=== PATIENT | female | born 1990 | race Caucasian/White ===

== ENCOUNTER 2016-07-29 16:02 | Emergency (ER) | payer MEDICARE, MEDICAID ==
[~2016-07-29 16:02] MED LIST: ALBUTEROL17 GM INH; AMBIEN10 MG; AMBIEN10 MG PO; AMOXICILLIN875 MG PO; ATARAX50 MG PO; AUGMENTIN 875-1 EAC2 PO; BACTRIM DS TABL1 TAB PO; BACTRIM DS1 TAB PO; BIRTH CONTROL PILL; CIPRO500 MG PO; CLARITIN10 MG; CONCERTA18 MG PO; CYMBALTA30 MG PO; DARVOCET-N 1001 TAB PO; DEPAKOTE; DEPAKOTE500 MG; DEPO-PROVER150 MG/ML; FEOSOL1 TAB PO; FOLIC ACID1 MG PO; GEODON20 MG; IBUPROFEN200 MG PO; IBUPROFEN600 M1 PO; KEFLEX500 MG; KEPPRA; KEPPRA100 MG/ML PO; KEPPRA1000 MG; KEPPRA1000 MG PO; KEPPRA500 M1 PO; KEPPRA500 MG PO; LAMICTAL; LAMICTAL100 M1 PO; LITHIUM CARBON300 M PO; LITHIUM CARBON450 MG; LITHIUM CARBON450 MG PO; LUNESTA; LUNESTA1 MG; MACROBID 100 M100 M1 PO; MOTRIN600 MG PO; MULTIVITAM1 TAB.CHEW PO; NEURONTIN300 MG PO; NO HOME MEDICATION XX; NO MEDS; PAXIL10 MG; PERCOCET 5-3251 EACH PO; PHENERGAN25 M1 PO; PHENERGAN25 MG PO; PRENATAL VITAMI PO; PRENATAL1 TAB PO; PRILOSEC20 MG PO; PRISTIQ50 MG PO; TRAZODONE50 MG; TRILEPTAL150 MG; TRILEPTAL300 MG; VIMPAT100 MG PO; VIMPAT150 MG PO; ZITHROMAX250 MG PO; ZOFRAN ODT4 MG PO; ZOFRAN ODT4 MG/UDTAB PO; ZOFRAN4 M2 PO; ZOFRAN4 MG PO; ZOFRAN8 MG PO; [UNRECOGNIZED DRUG - CODE] PO
[2016-07-29 17:10] LABS: PREGNANCY-URINE NEGATIVE (NEGATIVE)
== END 2016-07-29 17:48 ==
LOC: EDMED 16:02
PROVIDERS: Physician Assistant
DX: R51 Headache (principal); R11.0 Nausea; G40.909 Epilepsy, unspecified, not intractable, without status epilepticus; F31.9 Bipolar disorder, unspecified; Z79.899 Other long term (current) drug therapy
CPT/HCPCS: J1200; J1885; J2405; J7030

== ENCOUNTER 2016-09-01 14:29 | Emergency (ER) | payer MEDICARE, MEDICAID ==
[2016-09-01 15:44] LABS: URINE BILIRUBIN NEGATIVE (NEG); URINE BLOOD NEGATIVE (NEG); URINE GLUCOSE (UA) NEGATIVE (NEG); URINE KETONE NEGATIVE (NEG); URINE LEUKOCYTE ESTERASE NEGATIVE (NEG); URINE NITRITE NEGATIVE (NEG); URINE PROTEIN NEGATIVE (NEG)
[2016-09-01 15:45] LABS: URINE APPEARANCE CLEAR; URINE COLOR YELLOW
[2016-09-01 15:46] LABS: BASO % 0.5 % (0-2); EOS % 1.2 % (0-7); EOSINOPHIL ABSOLUTE COUNT 0.1 tho/cmm (0.0-0.7); HCT-HEMATOCRIT 36.6 % (34.0-49.0); IMMATURE GRANULOCYTES ABSOLUTE 0.01 tho/cmm (0-0.03); IMMATURE GRANULOCYTES PERCENT 0.1 % (0-0.3); LYMPH % 29.4 % (20-45); LYMPH ABSOLUTE COUNT 2.2 tho/cmm (0.8-4.5); MCH (MEAN CORPUSCULAR HGB) 30.9 pg (28.0-32.0); MCHC MEAN CORPUSCULAR HGB CONC 35.5 % (32.0-36.0); MCV (MEAN CELL VOLUME) 86.9 fl (82.0-96.0); MEAN PLATELET VOLUME 10.4 cmc (9.4-12.4); MONO % 5.4 % (0-12); MONOCYTE ABSOLUTE COUNT 0.4 tho/cmm (0.0-1.2); NEUTROPHIL ABSOLUTE COUNT 4.7 tho/cmm (1.6-8.0); NEUTROPHIL-AUTOMATED 4.7 tho/cmm (1.6-8.0); NEUTROPHILS % 63.4 % (40-80); PLATELET COUNT 278 tho/cmm (150-450); RED BLOOD COUNT 4.21 mil/cmm (4.00-5.20); RED CELL DISTRIBUTION WIDTH 12.2 % (12.4-16.4); WHITE BLOOD COUNT 7.4 tho/cmm (4.0-10.0)
[2016-09-01 15:54] LABS: ANION GAP 11 mmol/L (0-20); BLOOD UREA NITROGEN 12 mg/dl (6-24); CALCIUM 8.8 mg/dl (8.5-10.5); CARBON DIOXIDE-VENOUS 25 mmol/L (22-32); CHLORIDE 109 mmol/l (96-110); CREATININE 0.75 mg/dl (0.50-1.10); GLUCOSE 89 mg/dL (70-110); POTASSIUM 3.7 mmol/L (3.7-5.1); SODIUM 141 mmol/L (135-145); eGFR VALUE FOR BLACK >90 mL/Min
== END 2016-09-01 16:52 ==
LOC: EDMED 14:29
PROVIDERS: Nurse Practitioner Family
DX: R53.1 Weakness (principal); F41.9 Anxiety disorder, unspecified; R42 Dizziness and giddiness
CPT/HCPCS: J2060; J7030